=== PATIENT | male | born 2005 | race Caucasian/White ===

== ENCOUNTER → 2023-05-28 | Outpatient (CLI) | payer BC ==
[2023-05-29 02:21] LABS: Basophils # (A) 0.06 X 10*3/uL (0.00-0.10); Basophils % (A) 0.8 %; Eosinophils # (A) 0.31 X 10*3/uL (0.04-0.35); HCT 44.5 % (39.6-50.0); HGB 14.5 g/dL (13.0-17.0); Lymphocytes # (A) 3.19 X 10*3/uL (0.90-5.00); Lymphocytes % (A) 40.8 %; MCH 28.6 pg (27.0-32.0); MCHC 32.6 g/dL (32.0-37.0); MCV 87.8 FL (80.0-97.0); Mean Platelet Volume 10.3 FL (9.5-12.2); Monocytes # (A) 0.58 X 10*3/uL (0.20-1.00); Monocytes % (A) 7.4 %; NRBC Per 100 WBC 0 X 10*3/uL (0.00-0.01); Neutrophils # (A) 3.66 X 10*3/uL (1.80-7.70); Neutrophils % (A) 46.9 %; Platelet Count 289 X 10*3/uL (140-440); RBC 5.07 X 10*6/uL (4.40-5.60); RDW 12.5 % (11.5-14.5); WBC 7.81 X 10*3/uL (4.50-10.00)
[2023-05-29 02:51] LABS: ALT 22 U/L (10-49); AST 19 U/L (14-35); Albumin 4.6 g/dL (3.8-4.9); Albumin/Globulin Ratio 1.77 Ratio (1.60-3.17); Alkaline Phosphatase 50 U/L (41-126); BUN/Creat Ratio 22.62 Ratio (12.00-20.00); Blood Urea Nitrogen 18.1 mg/dL (9.0-27.0); Calcium 9.6 mg/dL (8.7-10.3); Carbon Dioxide 25.3 mmol/L (21.6-31.8); Chloride 102 mmol/L (96-109); Globulin 2.6 g/dL (1.6-3.3); Glucose 84 mg/dL (70-110); Potassium 4.6 mmol/L (3.5-5.5); Sodium 140 mmol/L (135-145); Total Bilirubin 0.2 mg/dL (0.3-1.2); Total Protein 7.2 g/dL (6.2-8.2)
== END | disposition home or self-care (01) ==
LOC: LABWHC1 15:13
PROVIDERS: ATTEND Family Medicine
DX: R51.9 Headache, unspecified (principal)
CPT/HCPCS: 36415; 80053; 84443; 85025

== ENCOUNTER 2023-11-21 01:06 | Emergency (ER) | payer BC ==
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
[2023-11-21 01:51] LABS: Basophils # (A) 0.1 k/uL (0-0.2); Basophils % (A) 2 %; Eosinophils # (A) 0.3 k/uL (0-0.7); Eosinophils % (A) 4 %; HCT 42.2 % (39.0-53.0); HGB 13.9 gm/dL (13.0-17.5); Lymphocytes # (A) 2.9 k/uL (1.0-4.8); Lymphocytes % (A) 45 %; MCH 29.4 pg (25.0-35.0); MCHC 32.9 g/dL (31.0-37.0); MCV 89.3 fL (80.0-100.0); Mean Platelet Volume 7.7; Monocytes # (A) 0.4 k/uL (0-1.0); Monocytes % (A) 7 %; Neutrophils # (A) 2.5 k/uL (1.3-7.7); Neutrophils % (A) 39 %; Platelet Count 232 k/uL (150-450); RBC 4.72 m/uL (4.30-5.90); RDW 12.4 % (11.5-15.5); WBC 6.4 k/uL (4.0-11.0)
[2023-11-21 02:01] LABS: ALT 38 U/L (4-49); AST 35 U/L (17-59); African American GFR (CKD) >90 (>60 ml/min/1.73 sqM); Albumin 4.1 g/dL (3.5-5.0); Alcohol <10 mg/dL; Alkaline Phosphatase 47 U/L (38-126); Anion Gap 7 mmol/L; Blood Urea Nitrogen 28 mg/dL (9-20); Calcium 8.7 mg/dL (8.4-10.2); Carbon Dioxide 23 mmol/L (22-30); Chloride 107 mmol/L (98-107); Glucose 99 mg/dL (74-99); Non-African American GFR(CKD) >90 (>60 ml/min/1.73 sqM); Sodium 137 mmol/L (137-145); Total Bilirubin 0.4 mg/dL (0.2-1.3); Total Protein 6.4 g/dL (6.3-8.2)
[2023-11-21 02:32] LABS: Partial Thromboplastin Time 24.7 sec (22.0-30.0); Prothrombin Time 10.6 sec (10.0-12.5)
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
[2023-11-21 05:26] VITALS: RESP 16
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
[2023-11-21 05:35] LABS: Amphetamine Screen,Urine Not Detected (NotDetected); Barbiturate Screen,Urine Not Detected (NotDetected); Benzodiazepines Screen,Urine Not Detected (NotDetected); Cocaine Screen,Urine Not Detected (NotDetected); Methadone Screen, Urine Not Detected (NotDetected); Opiate Screen,Urine Not Detected (NotDetected); Oxycodone Screen, Urine Not Detected (NotDetected); Phencyclidine Screen,Urine Not Detected (NotDetected); Tricyclic Antidepressant,Urine Not Detected (NotDetected); Urn Cannabinoid Scrn Not Detected (NotDetected)
[2023-11-21 06:06] VITALS: BP 124/84; PULSE 81; TEMP 98.7
== END 2023-11-21 06:10 | disposition home or self-care (01) ==
LOC: EC 01:06
DX: Z04.3 Encounter for examination and observation following other accident (principal)
CPT/HCPCS: 36415; 93005; 86900; 86901; 80053; 84484; 85025; 85610; 85730; 86850; 80306; 80320; 72125; 70450; 71260; 74177; 99285; Q9967